=== PATIENT | female | born 1960 | race Caucasian/White ===

== ENCOUNTER 2016-09-13 14:15 | Emergency (ER) | payer OTHER | END 2016-09-13 15:46 | disposition home or self-care (01) | LOC: FER 14:15 | DX: S16.1XXA Strain of muscle, fascia and tendon at neck level, initial encounter (principal); S80.01XA Contusion of right knee, initial encounter; M25.551 Pain in right hip; G89.29 Other chronic pain; V43.52XA Car driver injured in collision with other type car in traffic accident, initial encounter; Y92.410 Unspecified street and highway as the place of occurrence of the external cause | CPT/HCPCS: 71020; 72050; 72170; 73590; 99284 ==

== ENCOUNTER 2021-07-07 21:36 | Emergency (ER) | payer MEDICARE ==
[2021-07-08] MEDS ORDERED: NORCO 5-325 TA1 EACH PO (00:22)
== END 2021-07-08 00:37 | disposition home or self-care (01) ==
LOC: FER 21:36
DX: K14.6 Glossodynia (principal); F17.210 Nicotine dependence, cigarettes, uncomplicated
CPT/HCPCS: 99283; J1885; Q0163